=== PATIENT | female | born 1960 | race African-American/Black ===

== ENCOUNTER 2018-05-15 08:15 | Emergency (ER) | payer SELFPAY ==
[~2018-05-15] VITALS: Ht 160 cm; Wt 101.0 kg
[2018-05-15] MEDS ORDERED: KETOROLAC 30MG/ML VIAL IV ONE (09:45)
[2018-05-15] MEDS ORDERED: KETOROLAC 60MG/2ML VIAL IM ONE (10:00)
[2018-05-15 11:35] VITALS: BP 172/76
== END 2018-05-15 11:40 | disposition home or self-care (01) ==
LOC: ER 08:15
DX: M54.32 Sciatica, left side (principal); M79.604 Pain in right leg; E11.9 Type 2 diabetes mellitus without complications; E78.00 Pure hypercholesterolemia, unspecified; I10 Essential (primary) hypertension
CPT/HCPCS: 72170; 96372; 99283; J1885